=== PATIENT | male | born 1960 | race Caucasian/White ===

== ENCOUNTER 2019-08-16 09:09 | Inpatient (IN) | payer OTHER ==
[~2019-08-16] VITALS: Ht 180.3 cm; Wt 72.6 kg
[~2019-08-16 09:09] MED LIST: ABILIFY10 MG PO; ASPIRIN325; PLAVIX 75 MG TA75 MG PO; PRISTIQ50 MG PO; QUINAPRIL 20 MG20 MG PO; TOPROL XL25 MG PO
[2019-08-16 09:11] VITALS: BP 165/103
[2019-08-16] MEDS ORDERED: MAGNESIUM250 M1 PO (09:38)
[2019-08-16 09:39] LABS: ABSOLUTE NEUTROPHILS 5.8 thou/uL (1.4-8.2); BASOPHILS 0.5 % (0.0-2.0); EOSINOPHILS 0.2 % (0.0-3.0); HEMATOCRIT 44.5 % (42.0-52.0); HEMOGLOBIN 15.7 gm/dL (14.0-18.0); MCH 33.7 pg (26.0-34.0); MCHC 35.4 g/dL (28.0-37.0); MCV 95.3 fL (80.0-100.0); MONOCYTES 3.4 % (1.0-8.0); PLATELET COUNT 400 thou/uL (150-400); POLYS 75.9 % (36.0-66.0); RBC 4.67 mil/uL (4.50-6.00); RDW 12.8 % (10.5-14.5); WBC 7.6 thou/uL (4.0-11.0)
[2019-08-16] MEDS ORDERED: LOVASTATIN 20 M20 MG PO (09:39)
[2019-08-16] MEDS ORDERED: ZETIA10 MG PO (09:40)
[2019-08-16] MEDS ORDERED: ASA81BEC PO (09:40)
[2019-08-16] MEDS ORDERED: CRESTOR40 MG PO (09:42)
[2019-08-16 09:55] LABS: ANION GAP 14 mmol/L (7-16); BUN 20 mg/dL (7-18); CALCIUM 9.3 mg/dL (8.5-10.1); CHLORIDE 97 mmol/L (98-107); CO2 23 mmol/L (21-32); CREATININE 1.3 mg/dL (0.7-1.3); GLUCOSE 189 mg/dL (74-106); POTASSIUM 4.1 mmol/L (3.5-5.1); SODIUM 134 mmol/L (136-145)
[2019-08-16 10:04] LABS: TROPONIN-I <0.06 ng/mL (<0.06)
[2019-08-16 11:36] VITALS: BP 132/86
[2019-08-16 12:19] VITALS: BP 128/81
[2019-08-16 12:30] VITALS: BP 142/85
[2019-08-16] MEDS ORDERED: ALEVE220 MG PO (12:56)
[2019-08-16 16:00] VITALS: BP 142/85
--- NOTE | 2019-08-16 17:48 | NUR ---
PT IN GOOD SPIRITS, GAVE PRINTED INFO FOR PE'S. SENT COMM TO PHYSICIAN FOR AN ANXIETY MEDICATION TO BE MORE READILY AVAILABLE (FREQ) SHOULD HE FEEL AFFECTS OF NO ALCOHOL HE'S USED TO IT DAILY. AWAITING RESPONSE
[2019-08-16 20:33] VITALS: BP 117/78
--- NOTE | 2019-08-17 03:57 | NUR ---
ASSESSMENT: PT REMAIN ALERT AND ORIENT TIMES FOUR. UP AD MIKE. NO WD FROM ETOH. VSS, AFEBRILE. C/O GENERALIZED PAIN AT THE BEGINNING OF THE SHIFT. SR PER MONITOR. SLEPT MOST OF THE NIGHT. POSSIBLE DC TO HOME TOMROROW. WILL CONTINUE TO MONITOR.
[2019-08-17 04:59] VITALS: BP 132/79
[2019-08-17 07:23] VITALS: BP 122/79
--- NOTE | 2019-08-17 08:54 | EKG ---
[facility] [place] [address] ELECTROCARDIOGRAM REPORT Name: ROBERTO MACIAS Room #: 213-P ADM IN M.R.#: [id number] Admission: 08/16/19 Attend Phys: Damian Arriola MD Discharge: Date of : 60 Report #: [id number] THIS REPORT FOR: cc: Isaias Mauro MD, Randy MD Lundgren,Praveen Youngblood MD [facility] ~ THIS REPORT FOR: //name// [facility] ED Test Date: 2019-08-16 Test Time: 09:11:10 Pat Name: ROBERTO MACIAS Department: Room: 213 Gender: M Technical Artist: BRYCE : 1960 Requested By: Usama Mckeon Order Number: [id number] MD: Praveen Mcguire Measurements Intervals [place] Rate: 115 P: 79 CT: 167 QRS: 3 QRSD: 102 T: -3 QT: 320 QTc: 443 Interpretive Statements Sinus tachycardia LAE, consider biatrial enlargement Poor R wave progression Compared to ECG 09/01/2009 13:22:33 Heart rate has increased Electronically Signed On 08-17-2019 8:52:16 CDT by Praveen Mcguire [email or web address] <ELECTRONICALLY SIGNED> By: Praveen Mcguire MD, [facility] 08/17/19 0852 0911 Praveen Mcguire MD, [facility] /EPI
--- NOTE | 2019-08-17 10:16 | NUR ---
chart review. cm visited with pt via phone call. he is a & o x 3, and able to make his needs know. " live alone in apartment, full flight of stairs to the apartment, about 13 with handrails. independent. manage own medication, self empolyed, no insurance, use good rx allot. work automotive industry with little physical work. get rx filled at [address], primary dr [place]"/pt. will cont following as needed for dc needs.
--- NOTE | 2019-08-17 10:37 | 2DMMODE ---
[facility] [address] [place] [address] 2 D/M-MODE ECHOCARDIOGRAM Name: ROBERTO MACIAS Room #: 213-P ADM IN M.R.#: [id number] Admission: 08/16/19 Attend Phys: Damian Arriola MD Discharge: Date of : 60 Report #: [id number] THIS REPORT FOR: cc: Isaias Mauro MD, Randy MD Mancuso, Gerald M. MD [facility] ~ APPROVED REPORT Study performed: 08/17/2019 09:52:35 EXAM: Comprehensive 2D, Doppler, and color-flow Echocardiogram Patient Location: Bedside Room #: 213 Status: routine BSA: 1.92 HR: 67 bpm BP: 122/79 mmHg Rhythm: NSR Other Information Study Quality: Good Indications Pulmonary Embolism Hx: AL, cardiac arrest, stent, HTN. 2D Dimensions RVDd: 36.21 mm IVSd: 11.43 (7-11mm) LVOT Diam: 22.76 (18-24mm) LVDd: 46.93 mm PWd: 10.27 (7-11mm) Ascending Ao: 32.23 (22-36mm) LVDs: 34.26 (25-40mm) Aortic Root: 35.91 mm Volumes Left Atrial Volume (Systole) Single Plane 4CH: 41.00 mL Single Plane 2CH: 46.31 mL LA ESV Index: 25.00 mL/m2 Aortic Valve AoV Peak Presley.: 1.29 m/s AO Peak Gr.: 6.68 mmHg LVOT Max P.19 mmHg LVOT Max V: 1.24 m/s AISHA Vmax: 3.91 cm2 [facility] [address] [place] [address] 2 D/M-MODE ECHOCARDIOGRAM Name: ROBERTO MACIAS Room #: 213-P [facility] IN [facility]#: [id number] Admission: 08/16/19 Attend Phys: Damian Arriola Discharge: Date of : 60 Report #: [id number] Mitral Valve E/A Ratio: 0.8 MV Decel. Time: 267.94 ms MV E Max Presley.: 0.63 m/s MV A Presley.: 0.75 m/s MV PHT: 77.70 ms IVRT: 79.58 ms Pulmonary Valve PV Peak Presley.: 1.24 m/s PV Peak Gr.: 6.16 mmHg Pulmonary Vein P Vein S: 0.65 m/s P Vein A: 0.31 m/s P Vein D: 0.41 m/s P Vein A Dur.: 138.4 msec P Vein S/D Ratio: 1.59 Tricuspid Valve RAP Estimate: 5.00 mmHg Left Ventricle The left ventricle is normal size. Regional wall motion abnormalities are noted. There is normal left ventricular wall thickness. Left ventricular systolic function is normal. LVEF is 55%. Mild diastolic dysfunction is present (impaired relaxation pattern). Right Ventricle The right ventricle is normal size. The right ventricular systolic function is normal. Atria The left atrium size is normal. The right atrium size is normal. Aortic Valve The aortic valve is normal in structure. No aortic regurgitation is present. There is no aortic valvular stenosis. Mitral Valve The mitral valve is normal in structure. There is no mitral valve regurgitation noted. No evidence of mitral valve stenosis. Tricuspid Valve The tricuspid valve is normal in structure. There is no tricuspid valve regurgitation noted. Unable to assess PA pressure. [facility] [place] [address] 2 D/M-MODE ECHOCARDIOGRAM Name: ROBERTO MACIAS Room #: 213-P ADM IN M.R.#: [id number] Admission: 08/16/19 Attend Phys: Damian Arriola Discharge: Date of : 60 Report #: [id number] Pulmonic Valve The pulmonary valve is normal in structure. Great Vessels The aortic root is normal in size. The ascending aorta is normal in size. IVC is normal in size and collapses >50% with inspiration. Pericardium There is no pericardial effusion. <Conclusion> The left ventricle is normal size. LVEF is 55%. Mild diastolic dysfunction is present (impaired relaxation pattern). The right ventricle is normal size. The right ventricular systolic function is normal. The left atrium size is normal. The aortic valve is normal in structure. There is no mitral valve regurgitation noted. There is no tricuspid valve regurgitation noted. Unable to assess PA pressure. The aortic root is normal in size. There is no pericardial effusion. <ELECTRONICALLY SIGNED> By: Joni Juarez MD, FACC 08/17/19 1035 Joni Juarez MD, FACC /INF
[2019-08-17 11:35] VITALS: BP 121/77
[2019-08-17 15:54] VITALS: BP 114/66
--- NOTE | 2019-08-17 16:11 | NUR ---
ASSESSMENT CHARTED. PT ALERT AND ORIENTED. VSS. DENIED HAVING PAIN OR DISCOMFORT. ORDERS NOTED. NO CONCERNS AT THIS TIME. WILL CONTINUE TO MONITOR.
[2019-08-17 19:53] VITALS: BP 121/78
[2019-08-18 00:24] VITALS: BP 108/61
[2019-08-18 05:08] LABS: INR 1.1; PROTIME 11.1 Seconds (9.3-11.4)
[2019-08-18 05:19] VITALS: BP 113/69
[2019-08-18 08:05] VITALS: BP 115/84
[2019-08-18 15:55] VITALS: BP 143/97
--- NOTE | 2019-08-18 18:06 | NUR ---
PT CARE ASSUMED APPROX 0700. ASSESSMENT CHARTED. PT DENIES PAIN AND SOA. VSS. UP WITH STEADY GAIT. PT DENIES QUESTIONS OR CONCERNS REGARDING POC. TOLERATING POC. NO DISTRESS NOTED.
[2019-08-18 19:51] VITALS: BP 128/84
[2019-08-19 04:58] VITALS: BP 118/83
[2019-08-19 06:04] LABS: INR 1.3; PROTIME 13.4 Seconds (9.3-11.4)
--- NOTE | 2019-08-19 06:56 | NUR ---
A/O X 4.HYDROCODONE AND XANAX GIVEN REQUESTED.PATIENT IS HOPING TO GO HOME TODAY.INR THIS AM IS 1.3.PATIENT SLEPT.MONITOR SHOWS SB.POC CONTINUED.
[2019-08-19 08:00] VITALS: BP 122/84
[2019-08-19] MEDS ORDERED: ENOXAPARIN80 MG/0.1 SUBQ (08:31)
[2019-08-19] MEDS ORDERED: COUMADIN7.5 MG PO (08:31)
[2019-08-19 08:38] VITALS: BP 118/83
[2019-08-19 09:21] VITALS: BP 122/84
--- NOTE | 2019-08-19 10:18 | NUR ---
PT CARE ASSUMED APPROX 0700. ASSESSMENT CHARTED. PT DENIES PAIN AND SOA. VSS. UP WITH STEADY GAIT. DISCHARGED AT THIS TIME. DISCHARGE EDUCATION REVIEWED WITH PT BY REINFORCED BY THIS NURSE. PT DENIES QUESTIONS OR CONCERNS REGARDING POST HOSPITAL CARES, DIET RESTRICTIONS, APPT F/U AND LABS. ALL NEW INFO PRINTED WITH D/C PAPERWORK. IV OUT, TELE OFF. PT WILL BE ESCORTED OUT ONCE MEDS ARRIVE FROM [facility].
--- NOTE | 2019-08-19 12:19 | NUR ---
PT ESCORTED OFF UNIT AT THIS TIME
--- NOTE | 2019-08-19 15:56 | NUR ---
patient to vt home today. Gave [facility] information to patient as well as vouched medications $176.16 lovenox and warfarin.
== END 2019-08-19 12:30 | disposition home or self-care (01) | DRG 176 ==
LOC: ER 09:09 → EROBS 11:33 → 2N 11:33
PROVIDERS: Emergency Medicine; Hospitalist; ADMIT Internal Medicine; ATTEND Internal Medicine
DX: I26.99 Other pulmonary embolism without acute cor pulmonale (principal); M19.90 Unspecified osteoarthritis, unspecified site; K21.9 Gastro-esophageal reflux disease without esophagitis; G47.00 Insomnia, unspecified; I25.10 Atherosclerotic heart disease of native coronary artery without angina pectoris; F41.9 Anxiety disorder, unspecified; F32.9 Major depressive disorder, single episode, unspecified; E78.5 Hyperlipidemia, unspecified; I65.29 Occlusion and stenosis of unspecified carotid artery; Z79.82 Long term (current) use of aspirin; I25.2 Old myocardial infarction; Z87.891 Personal history of nicotine dependence; Z79.899 Other long term (current) drug therapy
CPT/HCPCS: 10081